=== PATIENT | male | born 1970 | race African-American/Black ===

== ENCOUNTER 2024-09-05 12:42 | Observation (INO) | payer BC ==
[2024-09-05] MEDS ORDERED: ACETAMINOPHEN INJECTION 100 ML ONE (13:09)
[2024-09-05] MEDS: ACETAMINOPHEN 1000 MG/100 ML BAG IVPB ONE (13:17)
[2024-09-05 13:26] LABS: ABSOLUTE IMMATURE GRANULOCYTES 0.01 x10^3/uL (0.0-0.031); BASOPHILS # 0.01 x10^3/uL (0.01-0.08); EOSINOPHIL % 1.4 % (0.8-7.0); EOSINOPHILS # 0.07 x10^3/uL (0.04-0.54); HEMATOCRIT 40.7 % (40.1-51.0); HEMOGLOBIN 13.9 g/dL (13.7-17.5); MCHC 34.2 g/dl (32.3-36.5); MEAN CELL VOLUME 89.8 fl (79.0-92.2); MEAN PLT VOLUME 9.6 fl (9.4-12.4); MONOCYTE # 0.38 x10^3/uL (0.30-0.82); MONOCYTE % 7.9 % (5.3-12.2); PLATELET COUNT 285 x10^3/uL (163-337); RDW 12.8 % (12.2-16.1)
[2024-09-05 13:37] LABS: INR 1.07 (0.83-1.09); PROTHROMBIN TIME (PATIENT) 11.9 SEC (9.7-13.0)
[2024-09-05 13:39] LABS: ACTIVATED PTT 27.3 SECONDS (25.2-36.5)
[2024-09-05 13:47] LABS: ALBUMIN 4.1 g/dl (3.4-5.0); ALK PHOS 102 U/L (45-117); ANION GAP 7 mmol/L (4-13); BILIRUBIN,TOTAL 0.9 mg/dl (0.2-1); CALCIUM 9.3 mg/dl (8.5-10.1); CHLORIDE 102 mmol/L (98-107); CO2 29 mmol/L (21-32); CREATININE 0.8 mg/dl (0.6-1.3); GLUCOSE,RANDOM 114 mg/dl (74-106); POTASSIUM 4.2 mmol/L (3.5-5.1); SGOT/AST 20 U/L (15-37); SGPT/ALT 25 U/L (7-52); SODIUM 138 mmol/L (136-145); TOT PROT 6.8 g/dl (6.4-8.2)
[2024-09-05] MEDS ORDERED: ACETAMINOPHEN 1000 MG/100 ML BAG IVPB PRN (14:12)
[2024-09-05 16:42] LABS: HCV DIAGNOSTIC IN-HOUSE W/RFLX NON-REACTIVE (NONREACTIVE)
[2024-09-05 16:43] LABS: HIV INTERPRETATION NEGATIVE (NEGATIVE)
[2024-09-05] MEDS: KETOROLAC TROMETHAMINE 30 MG/1 ML VIAL IVPUSH PRN (16:51)
[2024-09-05] MEDS: INSULIN ASPART SLIDING SCALE (NOVOLOG) 1 VIAL SQ SCH (16:59)
[2024-09-05] MEDS: ATORVASTATIN CA 20 MG TABLET (FP) PO SCH (21:34)
[2024-09-06 07:47] LABS: HEMOGLOBIN 13.1 g/dL (13.7-17.5); MCHC 33.6 g/dl (32.3-36.5); MEAN CELL VOLUME 89.7 fl (79.0-92.2); MEAN PLT VOLUME 9.6 fl (9.4-12.4); PLATELET COUNT 248 x10^3/uL (163-337); RDW 12.5 % (12.2-16.1)
[2024-09-06 09:14] LABS: CALCIUM 8.6 mg/dl (8.5-10.1); CREATININE 0.8 mg/dl (0.6-1.3); POTASSIUM 4.1 mmol/L (3.5-5.1)
[2024-09-06] MEDS: ENOXAPARIN NA (PORCINE) 40 MG/0.4 ML DISP.SYRIN SQ SCH (09:54)
[2024-09-06 13:56] VITALS: BMI 60.7
[2024-09-07 06:44] LABS: HEMATOCRIT 40.3 % (40.1-51.0); HEMOGLOBIN 13.1 g/dL (13.7-17.5); MCHC 32.5 g/dl (32.3-36.5); MEAN CELL VOLUME 90.4 fl (79.0-92.2); MEAN PLT VOLUME 9.8 fl (9.4-12.4); PLATELET COUNT 251 x10^3/uL (163-337); RDW 12.6 % (12.2-16.1)
[2024-09-07 07:01] LABS: POTASSIUM 4.1 mmol/L (3.5-5.1)
[2024-09-07 07:05] LABS: BLOOD UREA NITROGEN 11.8 mg/dL (7-18); CALCIUM 8.6 mg/dL (8.5-10.1)
[2024-09-07 07:09] LABS: CREATININE 0.8 mg/dL (0.55-1.3)
[2024-09-07 07:38] LABS: INR 1.16 (0.83-1.09); PROTHROMBIN TIME (PATIENT) 12.8 SEC (9.7-13.0)
[2024-09-07 16:26] VITALS: RESP 18
[2024-09-07 22:09] VITALS: BP 122/76; PULSE 68; TEMP 98
== END 2024-09-07 21:50 | disposition short-term general hospital (02) ==
LOC: FER 12:42 → UNDOADMIN 14:33 → INTOOBSV 14:33 → UNDOADMOB 14:33 → FM/S 14:33 → J2W 09-06 10:57
PROVIDERS: ADMIT Internal Medicine; ATTEND Internal Medicine
PROC: 3E033NZ Introduction of Analgesics, Hypnotics, Sedatives into Peripheral Vein, Percutaneous Approach (ICD-10-PCS; principal; 2024-09-06)
PROC: 3E023GC Introduction of Other Therapeutic Substance into Muscle, Percutaneous Approach (ICD-10-PCS; 2024-09-06)
PROC: 3E0333Z Introduction of Anti-inflammatory into Peripheral Vein, Percutaneous Approach (ICD-10-PCS; 2024-09-06)
DX: M25.561 Pain in right knee (principal); E78.5 Hyperlipidemia, unspecified; E66.01 Morbid (severe) obesity due to excess calories; E11.9 Type 2 diabetes mellitus without complications; Z98.890 Other specified postprocedural states; I10 Essential (primary) hypertension; G47.30 Sleep apnea, unspecified; W18.39XA Other fall on same level, initial encounter; Y93.89 Activity, other specified; Y92.008 Other place in unspecified non-institutional (private) residence as the place of occurrence of the external cause
CPT/HCPCS: 0241U-QW; 36415; 80048; 80053; 80061; 82550; 82553; 82962; 83880; 84484; 85025; 85027; 85610; 85730; 86803; 86850; 86900; 86901; 87389; 93005; 93306-TC; 93971-TC; 99285-25; G0378; J0131